=== PATIENT | female | born 1985 | race Asian ===

== ENCOUNTER 2018-02-12 19:38 | Emergency (ER) | payer OTHER ==
[~2018-02-12] VITALS: Ht 167.6 cm; Wt 109.1 kg
[~2018-02-12 19:38] MED LIST: PREN1TAB52 PO
[2018-02-12 20:22] LABS: GLUCOSE,POINT OF CARE 253 MG/DL (70-110)
[2018-02-12] MEDS ORDERED: IBUPROFEN 600 MG TABLET PO ONE (23:00)
[2018-02-12] MEDS ORDERED: IPRATROPIUM BROMIDE 0.5 MG/2.5 ML NEB SOLUTION NEB ONE (23:00)
[2018-02-12] MEDS ORDERED: ALBUTEROL SULFATE 2.5 MG/0.5 ML NEB SOLUTION NEB ONE (23:00)
[2018-02-12] MEDS ORDERED: 0.9% SODIUM CHLORIDE 5 ML NEB SOLUTION NEB ONE (23:10)
[2018-02-12 23:26] VITALS: BP 122/74
== END 2018-02-12 23:28 | disposition home or self-care (01) ==
LOC: EMS 19:39
DX: J00 Acute nasopharyngitis [common cold] (principal); J45.909 Unspecified asthma, uncomplicated; I10 Essential (primary) hypertension; E11.9 Type 2 diabetes mellitus without complications
CPT/HCPCS: 94640

== ENCOUNTER 2019-09-09 22:03 | Inpatient (IN) | payer OTHER ==
[~2019-09-09] VITALS: Ht 165.1 cm; Wt 105.7 kg
[2019-09-09] MEDS ORDERED: LISI40TA4 PO (22:39)
[2019-09-09] MEDS ORDERED: METF-960 PO (22:39)
[2019-09-09] MEDS ORDERED: ATOR20TA86 PO (22:39)
[2019-09-09] MEDS ORDERED: AMLO5TAB9 PO (22:39)
[2019-09-09] MEDS ORDERED: HydrALAZINE HCL 20 MG/ML VIAL IVP ONE (23:00)
[2019-09-09 23:50] LABS: BASOPHILS % (AUTO) 1.2 % (0.0-2.0); EOSINOPHILS % (AUTO) 0.8 % (1.0-6.0); HEMATOCRIT 48.3 % (36-46); HEMOGLOBIN 15.8 g/dL (12.0-16.0); LYMPHOCYTES % (AUTO) 28.1 % (22.0-44.0); MEAN CORPUSCULAR HEMOGLOBIN 29.1 pg (26.0-34.0); MEAN CORPUSCULAR HGB CONC 32.7 G/dL (31.0-37.0); MEAN CORPUSCULAR VOLUME 89 fL (80-100); MONOCYTES # (AUTO) 0.5 K/uL (0.1-1.0); MONOCYTES % (AUTO) 7.5 % (2.0-9.0); NEUTROPHILS # (AUTO) 4.5 K/uL (1.8-7.7); NEUTROPHILS % (AUTO) 62.4 % (40.0-70.0); PLATELET COUNT (AUTO) 272 K/uL (150-450); RED BLOOD CELL COUNT(AUTO) 5.41 MIL/uL (4.00-5.20); RED CELL DISTRIBUTION WIDTH 13.4 % (11.5-14.5)
[2019-09-10 00:12] LABS: D-DIMER 0.7 mg/L FEU (0.00-0.50); PROTHROMBIN TIME 10.3 SEC (9.4-11.6)
[2019-09-10 00:14] LABS: ANION GAP 11 mmol/L (8-16); CALCIUM, TOTAL 8.7 mg/dL (8.8-10.5); CARBON DIOXIDE 24 mmol/L (22-29); CHLORIDE 101 mmol/L (98-107); CREATININE 0.79 mg/dL (0.60-1.30); GLOMERULAR FILTR. RATE CALC > 60 mL/min (>60); GLUCOSE,RANDOM 383 mg/dL (70-110); POTASSIUM 4.5 mmol/L (3.5-5.1); SODIUM SERUM 136 mmol/L (136-145); UREA NITROGEN, BLOOD 20 mg/dL (7-18)
[2019-09-10 00:25] LABS: ALANINE AMINOTRANSFERASE 68 U/L (12-78); ALBUMIN 3.3 g/dL (3.4-5.0); ALKALINE PHOSPHATASE 136 U/L (46-116); ASPARTATE AMINOTRANSFERASE 64 U/L (15-37); BILIRUBIN,TOTAL 1.8 mg/dL (0.1-1.0); CREATINE KINASE, TOTAL ONLY 190 U/L (26-192); HCG,QUANTITATIVE 1 mIU/mL (0-6); TOTAL PROTEIN, SERUM 7.6 g/dL (6.4-8.2)
[2019-09-10 01:07] LABS: B-TYPE NATRIURETIC PEPTIDE 674 pg/mL (0-100)
[2019-09-10] MEDS ORDERED: IOVERSOL 350 MG/ML 150 ML VIAL ONE (01:09)
[2019-09-10] MEDS ORDERED: SODIUM CHLORIDE 0.9% 100 ML ONE (01:09)
[2019-09-10 01:12] LABS: LACTIC ACID 2.4 mmol/L (0.4-2.0)
[2019-09-10] MEDS ORDERED: ACETAMINOPHEN 325 MG TABLET PO PRN ×2 (03:00→06:00)
[2019-09-10] MEDS ORDERED: FUROSEMIDE 40 MG/4 ML VIAL IVP ONE (03:00)
[2019-09-10] MEDS ORDERED: ONDANSETRON HCL 4 MG/2 ML VIAL IVP PRN ×2 (03:00→06:00)
[2019-09-10 04:17] VITALS: BP 164/131
[2019-09-10 04:41] LABS: GLUCOSE,POINT OF CARE 342 MG/DL (70-110)
[2019-09-10] MEDS ORDERED: DEXTROSE 50%-WATER 25 GM/50 ML SYRINGE IVP PRN ×2 (04:45→06:00)
[2019-09-10] MEDS: LISINOPRIL 20 MG TABLET PO SCH ×2 (05:03→08:49)
[2019-09-10] MEDS: AmLODIPine BESYLATE 10 MG TABLET PO SCH ×2 (05:03→08:49)
[2019-09-10] MEDS ORDERED: 0.9% SODIUM CHLORIDE 10 ML SYRINGE IVP PRN (06:00)
[2019-09-10] MEDS ORDERED: POTASSIUM CHLORIDE 20 MEQ ER TABLET PO PRN (06:00)
[2019-09-10] MEDS ORDERED: POTASSIUM CHL 10 MEQ/WATER 50 ML IV PRN (06:00)
[2019-09-10] MEDS ORDERED: MAGNESIUM HYDROXIDE SUSPENSION 30 ML UDCUP PO PRN (06:00)
[2019-09-10] MEDS ORDERED: INSULIN LISPRO 100 UNITS/ML SQ PRN (06:00)
[2019-09-10] MEDS ORDERED: OxyCODONE HCL/ACETAMINOPHEN 5-325 MG TABLET PO PRN ×2 (06:00)
[2019-09-10] MEDS: INSULIN LISPRO 100 UNITS/ML SQ PRN ×4 (06:23→20:36)
[2019-09-10 06:51] LABS: GLUCOMETER DEV NAME(LOC) 5S.1; GLUCOSE,POINT OF CARE 282 MG/DL (70-110)
[2019-09-10 07:29] VITALS: BP 137/92
[2019-09-10] MEDS: ATORVASTATIN CALCIUM 20 MG TABLET PO SCH (08:49)
[2019-09-10] MEDS: HEPARIN SODIUM,PORCINE 5,000 UNITS/ML VIAL SQ SCH ×2 (08:49→20:29)
[2019-09-10] MEDS: DOCUSATE SODIUM 100 MG CAPSULE PO SCH ×2 (08:50→20:30)
[2019-09-10] MEDS ORDERED: FAMOTIDINE 10 MG/ML 2 ML VIAL IVP SCH (09:00)
[2019-09-10] MEDS ORDERED: [UNRECOGNIZED DRUG - OTHER] PO SCH (09:00)
[2019-09-10] MEDS ORDERED: FUROSEMIDE 40 MG/4 ML VIAL IVP SCH (09:00)
[2019-09-10] MEDS ORDERED: AmLODIPine BESYLATE 5 MG TABLET PO SCH (09:00)
[2019-09-10 15:58] VITALS: BP 130/90
[2019-09-10] MEDS: MetFORMIN HCL 500 MG TABLET PO SCH (17:31)
[2019-09-10] MEDS ORDERED: MetFORMIN HCL 850 MG TABLET PO SCH (18:00)
[2019-09-10 20:11] VITALS: BP 143/106
[2019-09-10 20:34] LABS: GLUCOMETER DEV NAME(LOC) 5N.3; GLUCOSE,POINT OF CARE 212 MG/DL (70-110)
[2019-09-10 20:34] LABS: GLUCOMETER DEV NAME(LOC) 5N.3; GLUCOSE,POINT OF CARE 234 MG/DL (70-110)
[2019-09-11 00:20] VITALS: BP 142/87
[2019-09-11 00:33] LABS: GLUCOMETER DEV NAME(LOC) 5S.1; GLUCOSE,POINT OF CARE 244 MG/DL (70-110)
[2019-09-11 05:38] VITALS: BP 137/95
[2019-09-11 05:59] LABS: GLUCOMETER DEV NAME(LOC) 5N.1; GLUCOSE,POINT OF CARE 192 MG/DL (70-110)
[2019-09-11] MEDS: INSULIN LISPRO 100 UNITS/ML SQ PRN ×3 (06:08→21:02)
[2019-09-11 07:17] LABS: BASOPHILS % (AUTO) 0.6 % (0.0-2.0); EOSINOPHILS % (AUTO) 1.7 % (1.0-6.0); HEMATOCRIT 43.5 % (36-46); HEMOGLOBIN 14.5 g/dL (12.0-16.0); LYMPHOCYTES # (AUTO) 1.9 K/uL (1.0-4.8); LYMPHOCYTES % (AUTO) 38.1 % (22.0-44.0); MEAN CORPUSCULAR HEMOGLOBIN 29.8 pg (26.0-34.0); MEAN CORPUSCULAR HGB CONC 33.3 G/dL (31.0-37.0); MEAN CORPUSCULAR VOLUME 89 fL (80-100); MONOCYTES # (AUTO) 0.4 K/uL (0.1-1.0); MONOCYTES % (AUTO) 8.9 % (2.0-9.0); NEUTROPHILS # (AUTO) 2.5 K/uL (1.8-7.7); NEUTROPHILS % (AUTO) 50.7 % (40.0-70.0); PLATELET COUNT (AUTO) 235 K/uL (150-450); RED BLOOD CELL COUNT(AUTO) 4.87 MIL/uL (4.00-5.20); RED CELL DISTRIBUTION WIDTH 13.5 % (11.5-14.5)
[2019-09-11 07:36] LABS: ANION GAP 11 mmol/L (8-16); CALCIUM, TOTAL 8.6 mg/dL (8.8-10.5); CARBON DIOXIDE 27 mmol/L (22-29); CHLORIDE 103 mmol/L (98-107); CREATININE 0.66 mg/dL (0.60-1.30); GLOMERULAR FILTR. RATE CALC > 60 mL/min (>60); GLUCOSE,RANDOM 205 mg/dL (70-110); POTASSIUM 3.4 mmol/L (3.5-5.1); SODIUM SERUM 141 mmol/L (136-145); UREA NITROGEN, BLOOD 12 mg/dL (7-18)
[2019-09-11 08:00] VITALS: BP 135/99
[2019-09-11] MEDS: FUROSEMIDE 20 MG TABLET PO SCH ×2 (09:00→21:00)
[2019-09-11] MEDS ORDERED: POTASSIUM CHL 10 MEQ/WATER 50 ML IV PRN (09:00)
[2019-09-11] MEDS ORDERED: LISINOPRIL 20 MG TABLET PO SCH (09:00)
[2019-09-11] MEDS ORDERED: POTASSIUM CHLORIDE 20 MEQ ER TABLET PO PRN (09:00)
[2019-09-11] MEDS: ATORVASTATIN CALCIUM 20 MG TABLET PO SCH (10:13)
[2019-09-11] MEDS: DOCUSATE SODIUM 100 MG CAPSULE PO SCH ×2 (10:13→21:00)
[2019-09-11] MEDS: MetFORMIN HCL 500 MG TABLET PO SCH ×2 (10:13→17:53)
[2019-09-11] MEDS: HEPARIN SODIUM,PORCINE 5,000 UNITS/ML VIAL SQ SCH ×2 (10:14→21:03)
[2019-09-11] MEDS: FUROSEMIDE 20 MG/2 ML VIAL IVP SCH ×2 (10:14→21:03)
[2019-09-11] MEDS: CARVEDILOL 6.25 MG TABLET PO SCH ×2 (10:17→21:03)
[2019-09-11 11:37] LABS: APPEARANCE,URINE CLOUDY (CLEAR); GLUCOSE, URINE (UA) 250 mg/dL (NEGATIVE); KETONES,URINE TRACE mg/dL (NEGATIVE); LEUKOCYTE ESTERASE ,URINE MODERATE (NEGATIVE); NITRATE,URINE NEGATIVE (NEGATIVE); OCCULT BLOOD,URINE NEGATIVE (NEGATIVE); PH,URINE 6.5 (5.0-8.0); PROTEIN,URINE SEE CONFIRM (NEGATIVE)
[2019-09-11 11:40] LABS: BILIRUBIN,URINE PRELIM. POSITIVE (NEGATIVE)
[2019-09-11 11:50] LABS: AMPHET/METH SCREEN,URINE NEGATIVE (NEGATIVE); BARBITURATE SCREEN, URINE NEGATIVE (NEGATIVE); BENZODIAZEPINES SCREEN,URINE NEGATIVE (NEGATIVE); CANNABINOID SCREEN,URINE NEGATIVE (NEGATIVE); COCAINE SCREEN,URINE NEGATIVE (NEGATIVE); METHADONE SCREEN, URINE NEGATIVE (NEGATIVE); OPIATE SCREEN,URINE NEGATIVE (NEGATIVE)
[2019-09-11 11:51] LABS: PHENCYCLIDINE SCREEN,URINE NEGATIVE (NEGATIVE)
[2019-09-11 11:55] LABS: SULFOSALICYLIC ACID,URINE 3+ (Negative)
[2019-09-11 11:56] LABS: BACTERIA,URINE None Seen /HPF (None Seen); RBC,URINE None Seen /HPF (0-2); SQUAMOUS EPITHELIAL CELL,UR Moderate /LPF (None Seen)
[2019-09-11 12:23] VITALS: BP 129/95
[2019-09-11 18:47] LABS: GLUCOMETER DEV NAME(LOC) 5N.1; GLUCOSE,POINT OF CARE 224 MG/DL (70-110)
[2019-09-11 20:29] VITALS: BP 138/99
[2019-09-11 23:44] LABS: GLUCOMETER DEV NAME(LOC) 5S.1; GLUCOSE,POINT OF CARE 257 MG/DL (70-110)
[2019-09-12 00:19] VITALS: BP 129/99
[2019-09-12 05:00] VITALS: BP 141/86
[2019-09-12] MEDS: INSULIN LISPRO 100 UNITS/ML SQ PRN ×3 (06:16→17:33)
[2019-09-12 07:17] LABS: ANION GAP 10 mmol/L (8-16); CALCIUM, TOTAL 8.8 mg/dL (8.8-10.5); CARBON DIOXIDE 26 mmol/L (22-29); CHLORIDE 102 mmol/L (98-107); CREATININE 0.41 mg/dL (0.60-1.30); GLOMERULAR FILTR. RATE CALC > 60 mL/min (>60); GLUCOSE,RANDOM 201 mg/dL (70-110); POTASSIUM 3.8 mmol/L (3.5-5.1); SODIUM SERUM 138 mmol/L (136-145); UREA NITROGEN, BLOOD 14 mg/dL (7-18)
[2019-09-12] MEDS: FUROSEMIDE 20 MG TABLET PO SCH (09:00)
[2019-09-12 09:21] VITALS: BP 144/100
[2019-09-12] MEDS: FUROSEMIDE 20 MG/2 ML VIAL IVP SCH ×2 (09:29→20:23)
[2019-09-12] MEDS: ATORVASTATIN CALCIUM 20 MG TABLET PO SCH (09:29)
[2019-09-12] MEDS: HEPARIN SODIUM,PORCINE 5,000 UNITS/ML VIAL SQ SCH ×2 (09:29→20:30)
[2019-09-12] MEDS: MetFORMIN HCL 500 MG TABLET PO SCH (09:29)
[2019-09-12] MEDS: CARVEDILOL 6.25 MG TABLET PO SCH ×2 (09:29→20:23)
[2019-09-12] MEDS: DOCUSATE SODIUM 100 MG CAPSULE PO SCH ×2 (09:30→20:30)
[2019-09-12 11:58] VITALS: BP 135/89
[2019-09-12 16:00] VITALS: BP 142/105
[2019-09-12] MEDS: GlipiZIDE 5 MG TABLET PO SCH (17:30)
[2019-09-12 20:09] VITALS: BP 147/116
[2019-09-12 21:20] LABS: GLUCOMETER DEV NAME(LOC) 5S.1; GLUCOSE,POINT OF CARE 198 MG/DL (70-110)
[2019-09-12 21:20] LABS: GLUCOMETER DEV NAME(LOC) 5S.1; GLUCOSE,POINT OF CARE 256 MG/DL (70-110)
[2019-09-12 23:21] LABS: GLUCOMETER DEV NAME(LOC) 5N.1; GLUCOSE,POINT OF CARE 243 MG/DL (70-110)
[2019-09-12 23:21] LABS: GLUCOMETER DEV NAME(LOC) 5N.1; GLUCOSE,POINT OF CARE 162 MG/DL (70-110)
[2019-09-13] VITALS (17 sets, daily range): BP systolic 110–158; BP diastolic 68–111
[2019-09-13] MEDS: GlipiZIDE 5 MG TABLET PO SCH ×2 (06:30→17:12)
[2019-09-13] MEDS ORDERED: LIDOCAINE/PF 1% 30 ML VIAL ONE (07:01)
[2019-09-13] MEDS ORDERED: SODIUM BICARBONATE 50 MEQ/50 ML VIAL ONE (07:01)
[2019-09-13] MEDS ORDERED: IOHEXOL 300 MG/ML 150 ML VIAL ONE ×2 (07:01→08:54)
[2019-09-13] MEDS ORDERED: HEPARIN SODIUM 1000 UNITS/NS 1,000 ML ONE (07:01)
[2019-09-13 07:28] LABS: GLUCOMETER DEV NAME(LOC) 5S.1; GLUCOSE,POINT OF CARE 157 MG/DL (70-110)
[2019-09-13] MEDS ORDERED: FentaNYL CITRATE-PF 100 MCG/2 ML VIAL ONE (07:50)
[2019-09-13] MEDS ORDERED: MIDAZOLAM HCL 2 MG/2 ML VIAL ONE (07:50)
[2019-09-13] MEDS ORDERED: HEPARIN SODIUM,PORCINE 1,000 UNITS/ML 10 ML VIAL ONE (07:52)
[2019-09-13] MEDS ORDERED: HEPARIN SODIUM 2,000 UNITS in HEPARIN SODIUM 1000 UNITS/NS 1,000 ML IARTER ONE (07:54)
[2019-09-13] MEDS ORDERED: HEPARIN SODIUM 1000 UNITS/NS 1,000 ML IARTER ONE (07:54)
[2019-09-13] MEDS ORDERED: IOHEXOL 300 MG/ML 150 ML VIAL ICOR ONE ×2 (08:00→09:30)
[2019-09-13] MEDS ORDERED: LIDOCAINE 1% 30 ML/SOD BICARB 8.4% 4 ML SQ ONE (08:00)
[2019-09-13] MEDS ORDERED: FentaNYL CITRATE-PF 100 MCG/2 ML VIAL IVP ONE (08:15)
[2019-09-13] MEDS ORDERED: MIDAZOLAM HCL 2 MG/2 ML VIAL IVP ONE (08:15)
[2019-09-13] MEDS ORDERED: HEPARIN SODIUM,PORCINE 1,000 UNITS/ML 10 ML VIAL IVP ONE (08:15)
[2019-09-13] MEDS: DOCUSATE SODIUM 100 MG CAPSULE PO SCH ×2 (09:00→21:00)
[2019-09-13] MEDS ORDERED: TICAGRELOR 90 MG TABLET PO ONE (09:00)
[2019-09-13] MEDS ORDERED: ASPIRIN 325 MG TABLET PO ONE (09:00)
[2019-09-13] MEDS ORDERED: TICAGRELOR 90 MG TABLET ONE (09:00)
[2019-09-13] MEDS ORDERED: ASPIRIN 325 MG TABLET ONE (09:00)
[2019-09-13] MEDS ORDERED: EPTIFIBATIDE 2 MG/ML 10 ML VIAL IVP ONE ×2 (09:00→09:02)
[2019-09-13] MEDS: HEPARIN SODIUM,PORCINE 5,000 UNITS/ML VIAL SQ SCH ×2 (09:00→21:06)
[2019-09-13] MEDS ORDERED: HEPARIN SODIUM 1000 UNITS/NS 500 ML ONE (09:12)
[2019-09-13] MEDS: CARVEDILOL 6.25 MG TABLET PO SCH ×2 (10:56→21:06)
[2019-09-13] MEDS: INSULIN LISPRO 100 UNITS/ML SQ PRN ×3 (11:10→21:05)
[2019-09-13 17:58] LABS: GLUCOMETER DEV NAME(LOC) 5N.1; GLUCOSE,POINT OF CARE 271 MG/DL (70-110)
[2019-09-13 17:58] LABS: GLUCOMETER DEV NAME(LOC) 5N.1; GLUCOSE,POINT OF CARE 223 MG/DL (70-110)
[2019-09-13] MEDS: FUROSEMIDE 40 MG/4 ML VIAL IVP SCH (21:06)
[2019-09-13] MEDS: TICAGRELOR 90 MG TABLET PO SCH (21:06)
[2019-09-13] MEDS: ATORVASTATIN CALCIUM 40 MG TABLET PO SCH (21:06)
[2019-09-14 00:08] LABS: GLUCOMETER DEV NAME(LOC) 5N.1; GLUCOSE,POINT OF CARE 212 MG/DL (70-110)
[2019-09-14 04:21] VITALS: BP 131/89
[2019-09-14] MEDS: GlipiZIDE 5 MG TABLET PO SCH ×2 (06:02→17:53)
[2019-09-14] MEDS: INSULIN LISPRO 100 UNITS/ML SQ PRN ×4 (06:02→20:43)
[2019-09-14 07:05] LABS: GLUCOMETER DEV NAME(LOC) 5N.1; GLUCOSE,POINT OF CARE 169 MG/DL (70-110)
[2019-09-14 07:31] LABS: BASOPHILS % (AUTO) 0.7 % (0.0-2.0); EOSINOPHILS % (AUTO) 0.8 % (1.0-6.0); HEMATOCRIT 44.4 % (36-46); HEMOGLOBIN 14.7 g/dL (12.0-16.0); LYMPHOCYTES # (AUTO) 1.2 K/uL (1.0-4.8); LYMPHOCYTES % (AUTO) 18.8 % (22.0-44.0); MEAN CORPUSCULAR HEMOGLOBIN 29.2 pg (26.0-34.0); MEAN CORPUSCULAR VOLUME 89 fL (80-100); MONOCYTES # (AUTO) 0.5 K/uL (0.1-1.0); MONOCYTES % (AUTO) 8.9 % (2.0-9.0); NEUTROPHILS # (AUTO) 4.4 K/uL (1.8-7.7); NEUTROPHILS % (AUTO) 70.8 % (40.0-70.0); PLATELET COUNT (AUTO) 233 K/uL (150-450); RED BLOOD CELL COUNT(AUTO) 5.02 MIL/uL (4.00-5.20); RED CELL DISTRIBUTION WIDTH 13.6 % (11.5-14.5)
[2019-09-14 07:34] LABS: ANION GAP 12 mmol/L (8-16); CALCIUM, TOTAL 8.6 mg/dL (8.8-10.5); CARBON DIOXIDE 25 mmol/L (22-29); CHLORIDE 102 mmol/L (98-107); CREATININE 0.42 mg/dL (0.60-1.30); GLOMERULAR FILTR. RATE CALC > 60 mL/min (>60); GLUCOSE,RANDOM 159 mg/dL (70-110); POTASSIUM 3.6 mmol/L (3.5-5.1); SODIUM SERUM 139 mmol/L (136-145); UREA NITROGEN, BLOOD 16 mg/dL (7-18)
[2019-09-14 08:17] VITALS: BP 128/93
[2019-09-14] MEDS: DOCUSATE SODIUM 100 MG CAPSULE PO SCH ×2 (09:00→20:43)
[2019-09-14] MEDS: HEPARIN SODIUM,PORCINE 5,000 UNITS/ML VIAL SQ SCH ×2 (09:01→20:41)
[2019-09-14] MEDS: CARVEDILOL 6.25 MG TABLET PO SCH ×2 (09:02→20:41)
[2019-09-14] MEDS: FUROSEMIDE 40 MG/4 ML VIAL IVP SCH ×2 (09:02→20:40)
[2019-09-14] MEDS: TICAGRELOR 90 MG TABLET PO SCH ×2 (09:02→20:41)
[2019-09-14] MEDS: ASPIRIN 81 MG CHEWABLE TABLET PO SCH (09:03)
[2019-09-14] MEDS: LISINOPRIL 5 MG TABLET PO SCH (10:45)
[2019-09-14 11:06] VITALS: BP 107/73
[2019-09-14 16:10] VITALS: BP 113/72
[2019-09-14 20:20] VITALS: BP 126/89
[2019-09-14] MEDS: ATORVASTATIN CALCIUM 40 MG TABLET PO SCH (20:41)
[2019-09-14 23:35] LABS: GLUCOMETER DEV NAME(LOC) 5N.1; GLUCOSE,POINT OF CARE 232 MG/DL (70-110)
[2019-09-14 23:35] LABS: GLUCOMETER DEV NAME(LOC) 5N.1; GLUCOSE,POINT OF CARE 156 MG/DL (70-110)
[2019-09-14 23:35] LABS: GLUCOMETER DEV NAME(LOC) 5N.1; GLUCOSE,POINT OF CARE 210 MG/DL (70-110)
[2019-09-15 00:01] VITALS: BP_SYST 122; BP_SYST 22; BP_DIAS 85
[2019-09-15 04:30] VITALS: BP 119/75
[2019-09-15] MEDS: GlipiZIDE 5 MG TABLET PO SCH (05:50)
[2019-09-15 07:35] VITALS: BP 139/101
[2019-09-15] MEDS ORDERED: SODIUM CHLORIDE 0.9% 100 ML ONE (07:49)
[2019-09-15] MEDS: CARVEDILOL 6.25 MG TABLET PO SCH (07:59)
[2019-09-15] MEDS: HEPARIN SODIUM,PORCINE 5,000 UNITS/ML VIAL SQ SCH (07:59)
[2019-09-15] MEDS: FUROSEMIDE 40 MG/4 ML VIAL IVP SCH (07:59)
[2019-09-15] MEDS: ASPIRIN 81 MG CHEWABLE TABLET PO SCH (07:59)
[2019-09-15] MEDS: LISINOPRIL 5 MG TABLET PO SCH (08:00)
[2019-09-15] MEDS: TICAGRELOR 90 MG TABLET PO SCH (08:02)
[2019-09-15] MEDS ORDERED: CefTRIAXone 1 GM/DEXTROSE 50 ML IV SCH (09:00)
[2019-09-15] MEDS: DOCUSATE SODIUM 100 MG CAPSULE PO SCH (09:00)
[2019-09-15] MEDS ORDERED: FUROSEMIDE 40 MG TABLET PO SCH (09:15)
[2019-09-15 11:32] VITALS: BP 118/72
[2019-09-15 11:49] LABS: GLUCOMETER DEV NAME(LOC) 5N.1; GLUCOSE,POINT OF CARE 127 MG/DL (70-110)
[2019-09-15] MEDS: INSULIN LISPRO 100 UNITS/ML SQ PRN (11:54)
[2019-09-15] MEDS ORDERED: ATOR40TA28 PO (13:01)
[2019-09-15] MEDS ORDERED: GLIP5TAB97 PO (13:02)
[2019-09-15] MEDS ORDERED: CARV6 PO (13:04)
[2019-09-15] MEDS ORDERED: POTA8TAB60 PO (13:06)
[2019-09-15] MEDS ORDERED: CIPR250S4 PO ×2 (13:07→13:10)
[2019-09-15] MEDS ORDERED: FURO-151 PO (13:10)
[2019-09-15] MEDS ORDERED: CLOP75TA3 PO (13:10)
[2019-09-15] MEDS ORDERED: LISI-660 PO (13:11)
[2019-09-15] MEDS ORDERED: ASPI81TA39 PO (13:12)
[2019-09-15 18:16] LABS: GLUCOMETER DEV NAME(LOC) 5S.1; GLUCOSE,POINT OF CARE 165 MG/DL (70-110)
== END 2019-09-15 15:30 | disposition home or self-care (01) | DRG 175 ==
LOC: EMS 22:05 → 5S 09-10 02:56
PROVIDERS: ADMIT Internal Medicine; ATTEND Internal Medicine
PROC: 4A023N8 Measurement of Cardiac Sampling and Pressure, Bilateral, Percutaneous Approach (ICD-10-PCS; principal; 2019-09-13)
PROC: 027135Z Dilation of Coronary Artery, Two Arteries with Two Drug-eluting Intraluminal Devices, Percutaneous Approach (ICD-10-PCS; 2019-09-13)
PROC: B2111ZZ Fluoroscopy of Multiple Coronary Arteries using Low Osmolar Contrast (ICD-10-PCS; 2019-09-13)
DX: I25.10 Atherosclerotic heart disease of native coronary artery without angina pectoris (principal); I50.23 Acute on chronic systolic (congestive) heart failure; E44.0 Moderate protein-calorie malnutrition; I42.0 Dilated cardiomyopathy; E66.01 Morbid (severe) obesity due to excess calories; E11.65 Type 2 diabetes mellitus with hyperglycemia; I11.0 Hypertensive heart disease with heart failure; E78.00 Pure hypercholesterolemia, unspecified; E11.9 Type 2 diabetes mellitus without complications; Z87.891 Personal history of nicotine dependence; Z68.38 Body mass index [BMI] 38.0-38.9, adult; K59.00 Constipation, unspecified; E78.5 Hyperlipidemia, unspecified; N39.0 Urinary tract infection, site not specified
CPT/HCPCS: 71275; 76705; 83605; 84132; 85379; 87086; 92928; 93005; 93306; 93460; 99291; G0378; J0360; J0696; J1327; J1644; J1940; J2250; J3010; J3490; J7050; Q9967